=== PATIENT | male | born 1965 | race Caucasian/White ===

== ENCOUNTER 2018-01-10 12:13 | Emergency (ER) | payer MEDICAID ==
[~2018-01-10] VITALS: Ht 175.3 cm; Wt 62.1 kg
--- NOTE | 2018-01-10 12:15 | NUR ---
aaox3, came to er c/o LUQ abdominal pain, nausea and vomiting x 4 days. RR is even and unlabored with nad noted. skin is warm and dry. Awaiting md for eval.
[2018-01-10] MEDS ORDERED: ONDANSETRON HCL/PF 4 MG/2 ML VIAL ONE (12:54)
[2018-01-10] MEDS ORDERED: MORPHINE SULFATE INJ 4 MG/ML DISP.SYRIN ONE (12:54)
[2018-01-10 12:57] LABS: BASOPHILS % (AUTO) 0.4 % (0.0-2.0); EOSINOPHILS % (AUTO) 0.2 % (0.0-6.0); HEMATOCRIT 51 % (39-51); LYMPHOCYTES # (AUTO) 0.6 /CMM (0.8-4.8); LYMPHOCYTES % (AUTO) 8.6 % (20.0-44.0); MEAN CORPUSCULAR HEMOGLOBIN 33 PG (26.0-33.0); MEAN CORPUSCULAR HGB CONC 33 g/dl (31.0-36.0); MEAN CORPUSCULAR VOLUME 99 fL (80-96); MONOCYTES # (AUTO) 0.9 /CMM (0.1-1.30); MONOCYTES % (AUTO) 14.6 % (2.0-12.0); NEUTROPHILS % (AUTO) 76.2 % (43.0-81.0); PLATELET COUNT (AUTO) 185 /CMM (150-450); WHITE BLOOD COUNT (AUTO) 6.5 K/uL (4.3-11.0)
[2018-01-10] MEDS ORDERED: IV NS 0.9% 1,000 ML BAG IV ONE (13:00)
[2018-01-10] MEDS ORDERED: ONDANSETRON HCL/PF 4 MG/2 ML VIAL IVP ONE (13:00)
[2018-01-10] MEDS ORDERED: MORPHINE SULFATE INJ 2 MG/ML DISP.SYRIN IV ONE (13:00)
[2018-01-10 13:04] LABS: APPEARANCE,URINE CLEAR (CLEAR); BILIRUBIN,URINE 1+ (NEGATIVE); BLOOD, URINE 2+ Ery/uL (NEGATIVE); COLOR,URINE DARK YELLO (YELLOW); KETONES,URINE 1+ (NEGATIVE); LEUKOCYTE ESTERASE ,URINE NEGATIVE (NEGATIVE); NITRITE, URINE NEGATIVE (NEGATIVE); PROTEIN,URINE 2+ mg/dl (NEGATIVE); UGLUCOSE NEGATIVE (NEGATIVE); UROBILINOGEN,URINE 0.2 EU/dL (0.2)
--- NOTE | 2018-01-10 13:04 | NUR ---
IV ACCESS STARTED. BLOOD DRAWN FOR LABS. MEDICATED ORDERED.
[2018-01-10 13:13] LABS: BACTERIA,URINE None seen /HPF (None Seen); SQUAMOUS EPITHELIAL CELL,UR Few /HPF (None Seen); WBC,URINE NONE SEEN /HPF (0-3)
[2018-01-10 13:22] LABS: ALANINE AMINOTRANSFERASE 91 U/L (12-78); ALBUMIN 4.4 g/dL (3.4-5.0); ALKALINE PHOSPHATASE 95 U/L (46-116); ASPARTATE AMINOTRANSFERASE 119 U/L (15-37); BILIRUBIN,DIRECT 0.5 mg/dL (0.0-0.2); BILIRUBIN,TOTAL 1.6 mg/dL (0.2-1.0); CALCIUM, SERUM 9.4 mg/dL (8.5-10.1); CARBON DIOXIDE 26 mmol/L (21-32); CHLORIDE 99 mmol/L (98-107); CREATININE 0.9 mg/dL (0.6-1.3); GLUCOSE 79 mg/dL (74-106); LIPASE 601 U/L (73-393); POTASSIUM 3.1 mmol/L (3.5-5.1); SODIUM SERUM 138 mmol/L (136-145); TOTAL PROTEIN, SERUM 8.4 g/dL (6.4-8.2); UREA NITROGEN, BLOOD 9 mg/dL (7-18)
[2018-01-10 13:25] LABS: TROPONIN I < 0.017 ng/mL (0.00-0.056)
[2018-01-10] MEDS ORDERED: POTASSIUM CHLORIDE 20 MEQ TAB.PRT.SR PO STA (13:27)
[2018-01-10] MEDS ORDERED: POTASSIUM CHLORIDE 20 MEQ TAB.PRT.SR PO ONE (14:00)
--- NOTE | 2018-01-10 15:07 | NUR ---
IV removed. Catheter intact and site benign. Pressure and 4x4 applied to site. No bleeding noted.
--- NOTE | 2018-01-10 15:07 | NUR ---
Patient discharged to home in stable condition. Written and verbal after care instructions given. Patient verbalizes understanding of instruction.
[2018-01-10 15:13] VITALS: BP 138/89
== END 2018-01-10 15:14 | disposition home or self-care (01) ==
LOC: ER 12:15
DX: R10.12 Left upper quadrant pain (principal); I10 Essential (primary) hypertension; F10.10 Alcohol abuse, uncomplicated; Y90.9 Presence of alcohol in blood, level not specified; Z88.0 Allergy status to penicillin; Z88.5 Allergy status to narcotic agent; Z98.890 Other specified postprocedural states; Z90.79 Acquired absence of other genital organ(s); Z85.47 Personal history of malignant neoplasm of testis
CPT/HCPCS: 36415; 80048-TC; 80076-TC; 81000-TC; 83690-TC; 84484-TC; 85025-TC; A4606; J2270; J2405; J7030; Z7610

== ENCOUNTER 2018-03-12 10:34 | Emergency (ER) | payer BC ==
[~2018-03-12] VITALS: Ht 175.3 cm; Wt 63.5 kg
--- NOTE | 2018-03-12 11:34 | NUR ---
UPPER BACK PAIN, NECK & LT LATERAL CHEST WALL PAIN, WITH HEAD INJURY, NO KO. S/P FALL SATURDAY NIGHT, ABRASIONS ON LT UPPER BACK & LT ARM. PT AAOX3, AMB WITH STEADY GAIT, VSS. DENIES SOB, DIZZINESS, WEAKNESS @ THIS TIME. PT SEEN & EVAL'D BY DR. CASTRO. PT BACK FROM RADIOLOGY DEPT. PT SITTING UP ON CHAIR, NAD NOTED @ THIS TIME. WILL CONT TO MONITOR.
[2018-03-12] MEDS ORDERED: KETOROLAC TROMETHAMINE INJ 30 MG/ML VIAL ONE (11:46)
[2018-03-12] MEDS ORDERED: KETOROLAC TROMETHAMINE INJ 60 MG/2 ML VIAL IM ONE (12:00)
--- NOTE | 2018-03-12 12:01 | NUR ---
Patient discharged to home in stable condition. Written and verbal after care instructions given. Patient verbalizes understanding of instruction.
[2018-03-12 12:02] VITALS: BP 122/70
== END 2018-03-12 12:03 | disposition home or self-care (01) ==
LOC: ER 10:35
DX: S40.012A Contusion of left shoulder, initial encounter (principal); S00.03XA Contusion of scalp, initial encounter; S20.412A Abrasion of left back wall of thorax, initial encounter; I10 Essential (primary) hypertension; F10.10 Alcohol abuse, uncomplicated; Y90.9 Presence of alcohol in blood, level not specified; Z96.651 Presence of right artificial knee joint; Z96.612 Presence of left artificial shoulder joint; Z98.890 Other specified postprocedural states; Z88.0 Allergy status to penicillin; Z88.5 Allergy status to narcotic agent; W01.0XXA Fall on same level from slipping, tripping and stumbling without subsequent striking against object, initial encounter; Y93.89 Activity, other specified; Y92.89 Other specified places as the place of occurrence of the external cause; Y99.8 Other external cause status
CPT/HCPCS: 70450; 71046; 73030; 96372; 99284; A4606; J1885; Z7610